=== PATIENT | female | born 1955 | race Caucasian/White ===

== ENCOUNTER 2019-03-19 07:48 | Day surgery (SDC) | payer OTHER ==
[~2019-03-19] VITALS: Ht 160 cm; Wt 73.9 kg
[2019-03-19 07:59] VITALS: Ht 160 cm; Wt 73.9 kg
[2019-03-19 09:50] VITALS: BP 129/70
[2019-03-19 16:38] VITALS: BP 122/68
== END 2019-03-19 16:30 | disposition home or self-care (01) ==
LOC: ED 07:48 → DS 09:13
DX: S82.032A Displaced transverse fracture of left patella, initial encounter for closed fracture (principal); I10 Essential (primary) hypertension; E11.9 Type 2 diabetes mellitus without complications; E78.00 Pure hypercholesterolemia, unspecified; F32.9 Major depressive disorder, single episode, unspecified; E66.3 Overweight; Z79.899 Other long term (current) drug therapy; Z79.84 Long term (current) use of oral hypoglycemic drugs; Z68.29 Body mass index [BMI] 29.0-29.9, adult; Z98.890 Other specified postprocedural states; Z98.51 Tubal ligation status; W18.39XA Other fall on same level, initial encounter; Y93.89 Activity, other specified; Y92.89 Other specified places as the place of occurrence of the external cause; Y99.8 Other external cause status
CPT/HCPCS: C1713; J0690; J1170; J2405; J2704; J3010; J3490; J7120; Q0092